=== PATIENT | female | born 2000 | race African-American/Black ===

== ENCOUNTER 2022-04-24 14:31 | Emergency (ER) | payer OTHER ==
[~2022-04-24] VITALS: Ht 160 cm; Wt 70.0 kg
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
[2022-04-24] MEDS ORDERED: IV NORMAL SALINE 1000ML BAG 1,000 ML IV SCH (14:45)
[2022-04-24] MEDS ORDERED: CONTRAST GIVEN. MC PRN (15:15)
[2022-04-24] MEDS ORDERED: IOHEXOL 300 MG/ML 100ML VIAL. IV ONE (15:15)
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
[2022-04-24] MEDS: fentaNYL PF VIAL 100 MCG/2 ML VIAL IV/SQ PRN ×3 (15:39→16:59)
[2022-04-24 15:54] LABS: BASO % 0 % (0-3); EOS # 0.1 x10^3/uL (0.0-0.7); EOS % 1 % (0-3); HEMATOCRIT 38.9 % (36.0-47.0); HEMOGLOBIN 12.8 g/dL (12.0-15.5); LYMPH # 1.2 x10^3/uL (1.0-4.8); LYMPH % 12 % (24-48); MEAN CORPUSCULAR HEMOGLOBIN 28 pg (25-35); MEAN CORPUSCULAR HGB CONC 33 g/dL (31-37); MEAN CORPUSCULAR VOLUME 85 fL (79-100); MONO # 0.6 x10^3/uL (0.0-1.1); MONO % 7 % (0-9); NEUT # 7.6 x10^3/uL (1.8-7.7); NEUT % 80 % (31-73); PLATELET COUNT 212 x10^3/uL (140-400); RED BLOOD COUNT 4.58 x10^6/uL (3.50-5.40); RED CELL DISTRIBUTION WIDTH 14.9 % (11.5-14.5); WHITE BLOOD COUNT 9.5 x10^3/uL (4.0-11.0)
[2022-04-24 16:06] LABS: PREG TEST PT QUAL NEGATIVE (NEG)
[2022-04-24 16:11] LABS: ALBUMIN 2.9 g/dL (3.4-5.0); ALBUMIN/GLOBULIN RATIO 1.1 (1.0-1.7); CALCIUM 7.7 mg/dL (8.5-10.1); TOTAL BILIRUBIN 0.5 mg/dL (0.2-1.0); TOTAL PROTEIN 5.5 g/dL (6.4-8.2)
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
[2022-04-24 16:14] LABS: POTASSIUM 2.9 mmol/L (3.5-5.1)
[2022-04-24] MEDS ORDERED: POTASSIUM CHLORIDE 20 MEQ TABLET.ER. PO ONE (16:15)
[2022-04-24] MEDS ORDERED: IV NORMAL SALINE 1000ML BAG 1,000 ML IV ONE (16:30)
[2022-04-24] MEDS ORDERED: HYDROcodone/APAP 10/325 1 TAB TABLET PO ONE (16:30)
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
[2022-04-24] MEDS ORDERED: LIDO700A21 TP ×2 (16:42→16:47)
[2022-04-24] MEDS ORDERED: NAPR-514 PO ×2 (16:42→16:47)
[2022-04-24] MEDS ORDERED: CYCL5TAB PO ×2 (16:42→16:47)
[2022-04-24 17:23] VITALS: BP 126/74
[2022-04-24] MEDS ORDERED: POTA20TA4 PO (17:23)
--- NOTE | 2022-04-26 11:15 | EKG ---
[facility] [address] [place] [address] Test Date: 2022-04-24 Test Time: 15:38:20 Pat Name: MICHAEL ALEXANDER Department: Room: Gender: F Box Builder: : 2000 Requested By: MEGHANA CAST Order Number: [id number] Reading MD: Broderick Rogers MD Measurements Intervals Graham Rate: 107 P: 12 AR: 124 QRS: 41 QRSD: 86 T: 40 QT: 314 QTc: 424 Interpretive Statements SINUS TACHYCARDIA Electronically Signed On 04-26-2022 11:15:46 CDT by Broderick oRgers MD
== END 2022-04-24 17:24 | disposition home or self-care (01) ==
LOC: ER 14:31
DX: M54.6 Pain in thoracic spine (principal); M54.2 Cervicalgia; M25.511 Pain in right shoulder; R51.9 Headache, unspecified; G89.11 Acute pain due to trauma; V49.49XA Driver injured in collision with other motor vehicles in traffic accident, initial encounter; Y92.488 Other paved roadways as the place of occurrence of the external cause; Y93.89 Activity, other specified; Y99.8 Other external cause status
CPT/HCPCS: 36415; 70450; 71250; 71260; 72125; 73030; 74177; 80053; 84703; 85025; 93005; 96360; 99285; J3010; J7030